=== PATIENT | male | born 1970 | race Caucasian/White ===

== ENCOUNTER 2018-01-15 10:10 | Outpatient (CLI) | payer BC, SELFPAY ==
[2018-01-15 13:14] LABS: Abs Immature Grans 0.04 k/cumm (0.0-0.09); HGB 17.4 g/dL (13.5-17.5); Mean Corp. HGB Concentration 34.8 g/dL (32.0-36.0); Mean Corpuscular Hemoglobin 33.1 pg (27.0-33.0); Mean Corpuscular Volume 95.1 fL (80-95); Mean Platelet Volume 9.8 fL (8.0-11.0); Platelet Count 223 x1000/uL (130-400); RBC 5.26 m/cumm (4.50-6.00); RBC Distribution Width 12.8 % (11.8-14.1); White Blood Cell Count 16.84 k/cumm (4.4-10.8)
[2018-01-15 13:28] LABS: Absolute Neutrophil Count 15.16 k/cumm (1.2-6.7)
[2018-01-15 13:29] LABS: Absolute Eosinophil Count 0.17 k/cumm (0.0-0.7); Absolute Lymphocyte Count 0.34 k/cumm (1.2-3.4); Absolute Monocyte Count 1.18 k/cumm (0.11-0.7); RBC Morphology Normal
[2018-01-15 13:34] LABS: ALT 68 U/L (12-78); AST 24 U/L (15-37); Albumin 4.3 g/dL (3.4-5.0); Alkaline Phosphatase 73 U/L (46-116); Anion Gap 13.2 mmol/L (3-11); BUN 9 mg/dL (7-18); Bilirubin, Total 2.2 mg/dL (0.2-1.0); CO2 26.8 mmol/L (21.0-32.0); CREATININE 1.12 mg/dL (0.70-1.30); Calcium 9.7 mg/dL (8.5-10.1); Chloride 98 mmol/L (98-107); Cholesterol 220 mg/dL (50-200); Glucose 110 mg/dL (70-100); HDL Cholesterol 59 mg/dL (40-60); LDL CHOLESTEROL 145 mg/dL (<100); Potassium 4.5 mmol/L (3.5-5.1); Sodium 138 mmol/L (136-145); Total Protein 7.6 g/dL (6.4-8.2); Triglyceride 153 mg/dL (30-150)
[2018-01-15 13:57] LABS: Amylase 50 U/L (25-115); Lipase 119 U/L (73-393)
[2018-01-15 15:02] LABS: Bilirubin, Direct 0.42 mg/dL (0.00-0.20)
== END 2018-01-15 10:30 ==
PROVIDERS: PCP Emergency Medicine; Visit Provider Family Medicine
DX: E80.6 Other disorders of bilirubin metabolism (principal); R10.9 Unspecified abdominal pain
CPT/HCPCS: 36415; 80053; 80061; 83690; 83721; 82150; 82248; 85025

== ENCOUNTER 2018-01-16 14:53 | Outpatient (CLI) | payer BC, SELFPAY ==
--- NOTE | 2018-01-16 12:05 | DI.CTLCSR_ITS ---
SYMPTOMS/DIAGNOSIS: ABD PAIN ABDOMINAL AND PELVIC CT: CT examination of the abdomen and pelvis was performed with a bolus infusion of 100 cc's of Omnipaque 350 and ingestion of dilute barium. Images obtained through the lung bases are unremarkable. The liver, spleen and pancreas appear normal. The gallbladder is mildly distended. No evidence of biliary dilatation. The adrenals and kidneys are unremarkable. No evidence of urinary tract obstruction or calcification. No abdominal or pelvic adenopathy seen. The abdominal aorta is of normal diameter and no major vascular abnormality is seen. No significant abdominal wall hernia seen. There is marked luminal dilatation of the appendix and there is marked periappendiceal fat edema and a small periappendiceal fluid collection. No significant free fluid identified in the pelvis. No gross free intraperitoneal air seen to indicate rupture. No additional bowel pathology seen. CONCLUSION: Findings consistent with acute appendicitis. Results were communicated to Dr. Wilkerson at 2:30 p.m.
[2018-01-16] MEDS: Omnipaque 350 MG/ML 100 ML BTL IJ (14:19)
== END 2018-01-16 15:13 ==
PROVIDERS: PCP Emergency Medicine; Visit Provider Family Medicine
DX: R10.31 Right lower quadrant pain (principal); K35.80 Unspecified acute appendicitis
CPT/HCPCS: 74177; J3490

== ENCOUNTER 2018-01-16 14:59 | Emergency (ER) | payer BC, SELFPAY | END 2018-01-16 16:00 | LOC: ER 15:18 | PROVIDERS: PCP Emergency Medicine | DX: R69 Illness, unspecified (principal) ==

== ENCOUNTER 2018-01-16 15:30 | Observation (INO) | payer BC, SELFPAY ==
[2018-01-16] VITALS (8 sets, daily range): BP systolic 123–156; BP diastolic 72–111; PULSE 100–129; RESP 14–94; TEMP 36.7–38.6; O2SAT 94–98
--- NOTE | 2018-01-16 15:48 | W.PM.HP.N ---
Date of service: 01/16/18 Time of Service: 15:48 Assessment and Plan (1) Appendicitis, acute: Current visit: Yes Status: Acute 47 y/o male with findings on CT , history, and exam consistent with acute appendicitis. Recommended laparoscopic appendectomy urgently. Operative procedure with risks, benefits, and alternatives reviewed with patient and . These include but are not limited to risks with anesthesia, bleeding, infection, scarring, conversion to open, drain placement, mejias placement, possible injury to adjacent structures and organs, and possible additional procedures. Expected post-op course/restrictions reviewed. All questions answered. Invanz ordered for perioperative antibiotic coverage. Will plan to proceed to OR this evening. History of Present Illness Chief Complaint: Abdominal pain Narrative: 47 y/o male, patient of Dr. Wilkerson, who presented today for an outpatient CT abd/pelvis for abdominal pain. CT demonstrated a dilated appendix with periappendiceal fluid and inflammation consistent with appendicitis. Case discussed with Dr. Wilkerson. Patient was seen in the office yesterday by Dr. Wilkerson and had labs drawn on 01/15/18. CBC significant for a WBC count of ~17k. Total bili - 2.2. Patient notes that he has had abdominal pain x 2 days. Pain was initially epigastric/periumbilical but has now settled in the right lower quadrant. (+) subjective intermittent fevers for which he has been taking Tylenol. He did not check his temperatiure. (+) nausea and vomiting. Blood was noted in his last emesis after he had vomited several times. (+) diarrhea. (+) anorexia. He has not had anything to eat or drink today except for oral contrast. He denies any urinary symptoms. He denies any sick contacts. He denies any chronic medical conditions or meds. He was prescribed oxycodone yesterday by Dr. Wilkerson for the abdominal pain. Review of Systems Review of Systems All systems reviewed & are unremarkable except as noted in HPI and below Constitutional Reports fever(s) Cardiovascular Denies chest pain, Denies rapid heart rate and Denies dyspnea on exertion Respiratory Denies cough and Denies dyspnea on exertion Gastrointestinal Reports abdominal pain, Reports diarrhea, Reports nausea and Reports vomiting PFSH Social History Smoking/Tobacco Use Status: Former Tobacco Use Surgical History H/O arthroscopy of left knee (Chronic) H/O arthroscopy of right knee (Chronic) Meds Home Medications Medication Instructions Recorded Confirmed Type oxycodone 5 mg tablet 5 mg PO Q4H PRN #18 tab MDD 6 tabs 01/15/18 01/16/18 Rx Allergies Allergy/AdvReac Type Severity Reaction Status Date / Time No Known Allergies Allergy Unverified 01/15/18 09:34 Exam Const General: cooperative, healthy appearing and no acute distress Orientation: alert and oriented x3 HENMT Head: normocephalic and atraumatic Eyes Sclera: sclerae normal Neck Neck: no lymphadenopathy, trachea midline and no JVD Resp Effort & Inspection: normal respiratory effort and able to speak in complete sentences Cardio Jugular venous pressure: no JVD Rate: regular rate GI Inspection: non-distended Palpation: soft, not firm, no guarding, no masses, not rigid and tender in the RLQ (moderately tender localized to RLQ) Skin General skin exam: no rashes or lesions noted and no jaundice Neuro General: alert and oriented x3 Speech: speech normal Results Imaging Abdomen CT scan report/results: report reviewed and image reviewed CT scan - pelvis: report reviewed and image reviewed Imaging Studies: Patient Name: LETY YORK AUnit #: [id number]: DI Ordering Provider: Franklin Wilkerson : [facility] Primary Care Provider: Bob Shiate of Exam: 01/16/18ex: M : 1970Age: 47 Exam(s) a CT:CT abdomen & pelvis w SYMPTOMS/DIAGNOSIS: ABD PAIN ABDOMINAL AND PELVIC CT: CT examination of the abdomen and pelvis was performed with a bolus infusion of 100 cc's of Omnipaque 350 and ingestion of dilute barium. Images obtained through the lung bases are unremarkable. The liver, spleen and pancreas appear normal. The gallbladder is mildly distended. No evidence of biliary dilatation. The adrenals and kidneys are unremarkable. No evidence of urinary tract obstruction or calcification. No abdominal or pelvic adenopathy seen. The abdominal aorta is of normal diameter and no major vascular abnormality is seen. No significant abdominal wall hernia seen. There is marked luminal dilatation of the appendix and there is marked periappendiceal fat edema and a small periappendiceal fluid collection. No significant free fluid identified in the pelvis. No gross free intraperitoneal air seen to indicate rupture. No additional bowel pathology seen. CONCLUSION: Findings consistent with acute appendicitis. Results were communicated to Dr. Wilkerson at 2:30 p.m. Ordering provider: Franklin Wilkerson CC: Dictated By: Karlo Portillo M.D. 01/16/18 1437 Transcribed By: Jyothi Mahan 01/16/18 [id number]
[2018-01-16] MEDS: Lactated Ringers 1,000 ML 125 ML IV (16:10)
--- NOTE | 2018-01-16 17:40 | APP_PTH ---
PATIENT: LETY YORK LOC: U#:[id number] AGE/SX: 47/M ROOM: 217 RE01/16/[address]: Charanjit Casillas : 1970 BED: A DIS: 01/17/2018 SPEC #: [id number] RECD: 01/17/18 12:50 STATUS: NAT REQ #: [id number] NICOLA: 01/16/18 17:[address]: Charanjit Casillas DEPT: Surgical Specimen RECD BY: Rachel Juan ENTERED: 01/17/18 12:52 SP TYPE: Appendix OTHR DR: Bob Shi DO Tissues: 1 - APPENDIX NOT INCIDENTAL 2 - PERITONEUM/JUANITA BIOPSY Procedures: GROSS AND MICRO LEVEL 4 GROSS AND MICRO LEVEL 3 Comments: [id number]
[2018-01-16] MEDS: Bupivacaine 0.25% Pres-Free 30 ML VIAL (17:46)
[2018-01-16] MEDS: HYDROmorphone 2 MG/ML VIAL IVP (18:15)
--- NOTE | 2018-01-16 18:36 | ROE_ITS ---
Date of service: 01/16/18 Time of Service: 18:27 Operative Note DATE OF PROCEDURE: 01/16/18 PRE-OP DIAGNOSIS: Acute appendicitis POST-OP DIAGNOSIS: same PROCEDURE: Laparoscopic appendectomy SURGEON: Charanjit Casillas CURRICULUM AND INSTRUCTION SPECIALIST: Suzi Skelton ANESTHESIA: GETA ESTIMATED BLOOD LOSS: 5 PATHOLOGY: other (appendix and peritoneal nodule) COMPLICATIONS: None Patient was transported to: PACU Patient's condition: stable Indications: 47 y/o male with findings of acute appendicitis on CT who presents at this time for a laparoscopic appendectomy. Operative procedure including risks, benefits, and alternatives had been discussed with the patient and his and informed consent obtained prior to surgery. Findings: Acute suppurative appendicitis. No gross rupture or abscess noted. Procedure Description: Patient was brought to the operating room and placed on the table in the supine position. SCDs in place on both lower extremities. Patient received Invanz for perioperative antibiotic coverage. Patient was intubated and placed under general anesthesia. Waters catheter placed. Anterior abdominal wall was shaved with a clipper then prepped and draped in the usual sterile fashion with chloraprep. Time out procedure performed per protocol. Initial incision was made just below the umbilicus. Incision was carried down to the fascia, which was grasped, elevated, and sharply incised. Peritoneal cavity was then entered in the midline. Peritoneal surface was swept with a finger. No adhesions noted. Stay sutures of 0-vicryl were placed on either side of the fascial opening. Farhad port inserted, CO2 connected, and abdomen insufflated to 15 mm Hg. Patient placed in Trendelenberg with the right side elevated. Remaining ports placed under direct vision after injection with 0.25% Marcaine including a 5 mm port in the suprapubic region and a second 5 mm port in the left lower quadrant. There was good visualization in the right lower quadrant. A rounded, loose nodule of fatty tissue was identified in the right pelvis. Terminal ileum and cecum were identified. The terminal ileum was draped over the appendix which was gently dissected free with blunt dissection. Inflammatory exudate was noted on the surface of the appendix. No obvious rupture or abscess was seen. The base of the appendix was isolated and divided with the endoGIA stapler and a medium- thick (purple) cartridge. Mesoappendix was divided with the vascular cartridge reload. The appendix and previously noted peritoneal nodule of fatty tissue were removed from the abdomen via the infraumbilical port site with the endocatch bag and sent to pathology. Right lower quadrant was copiously irrigated with saline and suctioned until the effluent was clear. Good hemostasis noted. Staple lines intact. Adjacent bowel intact with no signs of injury. Abdomen was decompressed as the ports were removed under direst vision. Fascia at the infraumbilical site was reapproximated by tying together the stay sutures in a pursestring fashion. Additional 0.25% Marcaine was injected at this site for postop analgesia. Skin incisions closed with subcuticular 4-0 monocryl and skin adhesive. Waters catheter removed at the end of the procedure. Patient was extubated, awakened from anesthesia, and transferres to recovery in satisfactory condition.
[2018-01-16] MEDS: Normal Saline Flush 10 ML SYR IVP (18:43)
[2018-01-16] MEDS: Ketorolac 30 MG/ML VIAL IVP (18:43)
[2018-01-16] MEDS: oxyCODONE 5 MG TAB PO (20:17)
[2018-01-16] MEDS: Calcium Carbonate *TUMS* 500 MG CHEW PO (22:46)
--- NOTE | 2018-01-16 23:06 | NUR.NOTE ---
Nursing Note: IV fluids disconnected and paused at the time this patient went to the OR. Due to documentation from the OR unable to document this fact. Fluids reattached and started again when the patient came back to the floor. Unable to document this either. Fluids did not finish infusing at 2100 and are still running at this time
[2018-01-17] MEDS: Ketorolac 30 MG/ML VIAL IVP (01:49)
[2018-01-17] MEDS: Normal Saline Flush 10 ML SYR IVP (01:50)
[2018-01-17] MEDS: Lactated Ringers 1,000 ML 125 ML IV ×2 (01:53→10:03)
[2018-01-17 04:00] VITALS: BP 112/68; PULSE 89; RESP 16; TEMP 36.2; O2SAT 98
[2018-01-17] MEDS: oxyCODONE 5 MG TAB PO ×2 (04:07→07:57)
[2018-01-17 07:30] VITALS: BP 118/80; PULSE 91; RESP 18; TEMP 37.1; O2SAT 97
--- NOTE | 2018-01-17 10:51 | W.PM.DS.N ---
Date of service: 01/17/18 Time of Service: 10:52 DS: Diagnosis Discharge Diagnosis (1) Appendicitis, acute: Status: Acute Discharge Plan Disposition Patient Disposition: HOME Condition: Good Discharge Details Reason For Visit: ACUTE APPENDICITIS Admit Date/Time: 01/16/18 15:30 Admit Provider: Charanjit Casillas Attending Provider: Charanjit Casillas Primary Care Provider: Bob Shi Hospital Course Hospital Course: 47 y/o male who presented on 01/16/18 with findings of acute appendicitis on CT. Patient underwent an uneventful laparoscopic appendectomy on 01/16/18. By 01/17/18, he was tolerating a regular diet, had a bowel movement, and was voiding without problems. Fever resoved this morning. Patient ready for discharge in good condition. Patient may continue oxycodone 5 mg po q 4 hours prn pain which he already has at home. No new Rx given. Home Meds and New Rx's Prescriptions: Continue oxycodone 5 mg tablet 5 mg PO Q4H MDD 6 tabs PRN (Reason: pain) Qty: 18 RF: 0 Discharge Instructions Additional Instructions: No lifting > 20# x 2 weeks. May shower/climb stairs. Let the skin adhesive come off on its own. May apply heating pad or ice pack to abdominal wall as needed for discomfort. Referrals: Fabiana Mac MD [ [facility] STAFF PHYSICIAN] - (Postop follow-up in 2 weeks.) Activity:: Activity as Tolerated Equipment/Supplies:: No Equipment Needed Diet:: As Tolerated Discharge Orders Discharge Orders: Discharge Order (Routine); Ordered 01/17/18 Ordered By: Charanjit Casillas Exam Const General: cooperative, comfortable and no acute distress Orientation: alert and oriented x3 [facility] Head: normocephalic and atraumatic Eyes Sclera: sclerae normal Resp Effort & Inspection: normal respiratory effort and able to speak in complete sentences GI Inspection: non-distended and incision (laparoscopic port sites clean and dry, skin intact) Palpation: soft and nontender Skin General skin exam: erythema (mild skin irritation from adhesive on surgical drapes noted on abdomen in rectangular outline) Neuro General: alert and oriented x3 Speech: speech normal DS: Data Vitals/I&O Vitals and I&O: Vital Signs Temperature 37.1 C 01/17/18 07:30 Temperature Source Tympanic 01/17/18 07:30 Pulse 91 H 01/17/18 07:30 Pulse Rhythm Regular 01/17/18 07:43 Respiratory Rate 18 01/17/18 07:30 Respiratory Effort Non-Labored 01/17/18 07:43 Respiratory Depth Normal 01/17/18 07:43 Respiratory Pattern Normal 01/17/18 07:43 Blood Pressure 118/80 01/17/18 07:30 Pulse Oximetry 97 01/17/18 07:30 Respiratory End-tidal CO2 36 01/16/18 18:10 Oxygen Delivery Method Room Air 01/17/18 07:30 Oxygen Flow Rate 0 01/17/18 07:30 Pain Level 5 01/17/18 08:57 Intake & Output 01/16/18 01/16/18 01/17/18 11:59 23:59 11:59 Intake Total 2180.00 / 2180.00 2069 / 2069 Output Total 250 / 250 Balance 1930.00 / 1930.00 2069 Weight 99 kg Intake: IV 1140.00 / 1140.00 1000 / 1000 Oral 1040 / 1040 1070 / 1070 Output: Urine 250 / 250 Other: Urine Color Yellow Yellow Urine Appearance Clear Clear Urine Odor None Comment pt states that he voided in the toilet Per pt. report, pt. had a void x1 in the toilet. Stool Size Moderate Stool Characteristics Soft Liquid Brown Emesis Description None Voiding Methods Toilet Toilet PFSH Social History Smoking/Tobacco Use Status: Former Tobacco Use Surgical History H/O arthroscopy of left knee (Chronic) H/O arthroscopy of right knee (Chronic)
--- NOTE | 2018-01-17 10:55 | DSE_ITS ---
Date of service: 01/17/18 Time of Service: 10:52 DS: Diagnosis Discharge Diagnosis (1) Appendicitis, acute: Status: Acute Discharge Plan Disposition Patient Disposition: HOME Condition: Good Discharge Details Reason For Visit: ACUTE APPENDICITIS Admit Date/Time: 01/16/18 15:30 Admit Provider: Charanjit Casillas Attending Provider: Charanjit Casillas Primary Care Provider: Bob Shi Hospital Course Hospital Course: 47 y/o male who presented on 01/16/18 with findings of acute appendicitis on CT. Patient underwent an uneventful laparoscopic appendectomy on 01/16/18. By 01/17/18, he was tolerating a regular diet, had a bowel movement, and was voiding without problems. Fever resoved this morning. Patient ready for discharge in good condition. Patient may continue oxycodone 5 mg po q 4 hours prn pain which he already has at home. No new Rx given. Home Meds and New Rx's Prescriptions: Continue oxycodone 5 mg tablet 5 mg PO Q4H MDD 6 tabs PRN (Reason: pain) Qty: 18 RF: 0 Discharge Instructions Additional Instructions: No lifting > 20# x 2 weeks. May shower/climb stairs. Let the skin adhesive come off on its own. May apply heating pad or ice pack to abdominal wall as needed for discomfort. Referrals: Fabiana Mac MD [ [facility] STAFF PHYSICIAN] - (Postop follow-up in 2 weeks.) Activity:: Activity as Tolerated Equipment/Supplies:: No Equipment Needed Diet:: As Tolerated Discharge Orders Discharge Orders: Discharge Order (Routine); Ordered 01/17/18 Ordered By: Charanjit Casillas Exam Const General: cooperative, comfortable and no acute distress Orientation: alert and oriented x3 [facility] Head: normocephalic and atraumatic Eyes Sclera: sclerae normal Resp Effort & Inspection: normal respiratory effort and able to speak in complete sentences GI Inspection: non-distended and incision (laparoscopic port sites clean and dry, skin intact) Palpation: soft and nontender Skin General skin exam: erythema (mild skin irritation from adhesive on surgical drapes noted on abdomen in rectangular outline) Neuro General: alert and oriented x3 Speech: speech normal DS: Data Vitals/I&O Vitals and I&O: Vital Signs Temperature 37.1 C 01/17/18 07:30 Temperature Source Tympanic 01/17/18 07:30 Pulse 91 H 01/17/18 07:30 Pulse Rhythm Regular 01/17/18 07:43 Respiratory Rate 18 01/17/18 07:30 Respiratory Effort Non-Labored 01/17/18 07:43 Respiratory Depth Normal 01/17/18 07:43 Respiratory Pattern Normal 01/17/18 07:43 Blood Pressure 118/80 01/17/18 07:30 Pulse Oximetry 97 01/17/18 07:30 Respiratory End-tidal CO2 36 01/16/18 18:10 Oxygen Delivery Method Room Air 01/17/18 07:30 Oxygen Flow Rate 0 01/17/18 07:30 Pain Level 5 01/17/18 08:57 Intake & Output 01/16/18 01/16/18 01/17/18 11:59 23:59 11:59 Intake Total 2180.00 / 2180.00 2069 / 2069 Output Total 250 / 250 Balance 1930.00 / 1930.00 2069 Weight 99 kg Intake: IV 1140.00 / 1140.00 1000 / 1000 Oral 1040 / 1040 1070 / 1070 Output: Urine 250 / 250 Other: Urine Color Yellow Yellow Urine Appearance Clear Clear Urine Odor None Comment pt states that he voided in the toilet Per pt. report, pt. had a void x1 in the toilet. Stool Size Moderate Stool Characteristics Soft Liquid Brown Emesis Description None Voiding Methods Toilet Toilet PFSH Social History Smoking/Tobacco Use Status: Former Tobacco Use Surgical History H/O arthroscopy of left knee (Chronic) H/O arthroscopy of right knee (Chronic)
== END 2018-01-17 11:37 | disposition home or self-care (01) ==
LOC: MS 15:32
PROVIDERS: Admitting Provider Surgery; PCP Emergency Medicine; Visit Provider Surgery
PROC: 0DTJ4ZZ Resection of Appendix, Percutaneous Endoscopic Approach (ICD-10-PCS; CPT 44970; principal; 2018-01-16 16:30)
DX: K35.890 Other acute appendicitis without perforation or gangrene (principal)
CPT/HCPCS: 44970; 88305; 99222; NC; 88304; 93005; 93010; G0378; J1335; J1885; J2250; J2405; J3010

== ENCOUNTER 2019-09-28 08:29 | Outpatient (CLI) | payer BC, SELFPAY ==
[2019-09-30 14:14] LABS: SARS-CoV-2 RNA Undetected (Undetected); SARS-CoV-2 Specimen Source Nasopharynx
== END 2019-09-28 08:49 ==
PROVIDERS: PCP Emergency Medicine; Visit Provider Emergency Medicine
DX: Z11.59 Encounter for screening for other viral diseases (principal)
CPT/HCPCS: U0003

== ENCOUNTER 2019-10-08 00:56 | Outpatient (CLI) | payer BC, SELFPAY ==
--- NOTE | 2019-10-08 08:00 | ETT_ITS ---
APPROVED REPORT Exam: Exercise Treadmill Patient Location: Out-Patient Room/Bed: Stress Nurse: Margarita Carvajal RN BMI: 27.12 Baseline Rhythm: Sinus Rhythm Indications: Chest Pain, Dyspnea, SOB Medical History Medical History: Hyperlipidemia, SOB Cardiac Medications: Aspirin, statin(unknown) Allergies: No known drug allergies Cardiac Risk Factors: Hyperlipidemia, FHX of CAD, SOB Pretest Chest Pain Characteristics: Dyspnea Exercise History: Physically active Physical Disabilities: Knees Lung Sounds: Clear to auscultation Heart Sounds: Regular Stress Test Details Test: Exercise stress testing was performed using a Parish protocol. Rest Stress HR Resting HR Supine: 86 bpm Max Heart Rate (APMHR): 171 bpm Resting HR Standin bpm Target HR (85% APMHR): 145 bpm Max HR Achieved: 171 bpm % of APMHR: 100 Recovery HR: 104 bpm HR response to stress: Accelerated HR response to stress BP Resting BP Supine: 156/88 mmHg Resting BP Standin/66 mmHg Max BP: 180/72 mmHg Recovery BP: 150/84 mmHg BP response to stress: Abnormal hypertensive response to stress. ECG Resting ECG: Sinus Rhythm Stress ECG: Sinus Rhythm ST Change: Normal Maximum ST Deviation: 2.8 mm Arrhythmia: VPC's Recovery ECG: Sinus tachycardia Recovery ST Change: Normal Recovery Arrhythmia: VPC Clinical Reason for Termination: Target HR Achieved, Leg pain/Claudication Stress Symptoms: Leg Fatigue, General Fatigue Exercise duration: 09 min28 sec Highest Stage Reached: Stage 4: 4.2 mph at 16% grade. Exercise capacity: 10.92 METs Functional Capacity: Average Capacity Stress ECG Conclusion 1. Patient exercised for 9 minutes (11 METS). Rate-pressure product was 30,000. 2. Patient no symptoms suggestive of ischemia. 3. There was no evidence of ischemia on the ECG portion of the exam. 4. The Bhatt Score ( 9) estimates an annual cardiovascular mortality of 0% and a five year survival of 95%. Using the Bhatt Score there is a low probability of any angiographic coronary disease. Critical Notification Critical Value: No
--- NOTE | 2019-10-08 08:40 | DI.RAD_ITS ---
EXAM: XR CHEST 2V PA LATERAL CLINICAL HISTORY: dyspnea on exertion,r06.00 TECHNIQUE: 2D digital imaging was performed. COMPARISON: No exams were available for comparison FINDINGS: The heart is not enlarged. The lungs are clear and well expanded. No pleural effusion seen. Mediastin al contours appear intact. IMPRESSION: Normal chest
== END 2019-10-08 01:16 ==
PROVIDERS: PCP Emergency Medicine; Visit Provider Emergency Medicine
DX: R06.00 Dyspnea, unspecified (principal); R07.9 Chest pain, unspecified; R06.02 Shortness of breath; E78.5 Hyperlipidemia, unspecified; Z82.49 Family history of ischemic heart disease and other diseases of the circulatory system
CPT/HCPCS: 71046; 93017

== ENCOUNTER 2019-10-09 01:41 | Outpatient (CLI) | payer BC, SELFPAY ==
[2019-10-09 12:44] LABS: HCT 48.7 % (40.0-50.0); HGB 16.9 g/dL (13.5-17.5); MCH 33.5 pg (27.0-33.0); MCHC 34.7 % (32.0-36.0); MCV 96.4 fL (80-95); MPV 9.6 fL (8.0-11.0); Platelet Count 214 10^3/uL (130-400); RBC 5.05 10^6/uL (4.36-5.78); RDW 12.4 % (11.8-14.1); RDW-SD 44.1 fL; WBC 5.19 10^3/uL (4.4-10.8)
[2019-10-09 13:08] LABS: ALT 78 U/L (16-63); AST 49 U/L (15-37); Albumin 4.5 g/dL (3.4-5.0); Alkaline Phosphatase 66 U/L (46-116); BUN 9 mg/dL (7-18); Bilirubin, Total 0.7 mg/dL (0.2-1.0); C-Reactive Protein 0.16 mg/dL (0.0-0.3); Calcium 9.4 mg/dL (8.5-10.1); Chloride 106 mmol/L (98-107); Glucose 91 mg/dL (74-106); NT-proBNP 25 pg/mL (<300); Potassium 4.4 mmol/L (3.5-5.1); Sodium 143 mmol/L (136-145); Total Protein 7.3 g/dL (6.4-8.2)
[2019-10-09 13:12] LABS: D-Dimer 190 ng/mlFEU (<500)
[2019-10-09 13:42] LABS: ESR 3 mm/hr (0-15)
== END 2019-10-09 02:01 ==
PROVIDERS: PCP Emergency Medicine; Visit Provider Emergency Medicine
DX: R06.00 Dyspnea, unspecified (principal); I50.9 Heart failure, unspecified
CPT/HCPCS: 36415; 80053; 85027; 85652; 83880; 85379; 86140

== ENCOUNTER 2019-10-29 02:30 | Outpatient (CLI) | payer BC, SELFPAY ==
--- NOTE | 2019-10-29 07:30 | DI.CT_ITS ---
EXAM: CT CHEST W CLINICAL HISTORY: SOB, CHEST PAIN WORSE WITH BREATHING,R07.1,R06.02 TECHNIQUE: COMPARISON: No exams were available for comparison FINDINGS: CT examination of the chest was performed with a bolus infusion of 70 cc of Omnipaque 350. Images obtained through the upper abdomen show unremarkable appearance of visualized portions of the liver, spleen, pancreas, adrenals, and kidneys. Gallbladder and bile ducts are CT normal. There is no evidence of a mediastinal mass or adenopathy. Pulmonary arteries are not well opacified, no gross central embolus. There is no thoracic aortic dissection or aneurysm. Major branch vessels of thoracic aorta are unremarkable. Cardiac size is within normal limits. No pleural effusion seen. The diaphragm is mildly elevated on the right. The lungs are clear with minimal mosaic attenuation in the right lung base which may be related to th e diaphragmatic elevation. Note is made of asymmetry of the clavicular heads, the right clavicular head is deformed and this may represent an old fracture. There is question of inferior displacement of the right clavicular head relative to the left clavicular head at the sternoclavicular joints, there does not appear to be karyn s widening of the right sternoclavicular joint. No gross soft tissue mass or edema associated with t he sternoclavicular joints. Clinical correlation is requested and if there is symptomatology referab le to the right sternoclavicular joint additional evaluation with MRI could be considered. IMPRESSION: No evidence of acute intrapulmonary process. Asymmetry of sternoclavicular joints, probable old fracture right clavicular head, additional evaluat ion with MRI could be considered if there is high clinical suspicion of sternoclavicular arthritis or inflammation. RADIATION DOSE DELIVERED: 568.13mGy.cm Total DLP
[2019-10-29] MEDS: Omnipaque 350 MG/ML 100 ML BTL IJ (14:25)
[2019-10-29] MEDS: Normal Saline - Diluent 50 ML VIAL IV (14:25)
== END 2019-10-29 02:50 ==
PROVIDERS: PCP Emergency Medicine; Visit Provider Emergency Medicine
DX: R06.02 Shortness of breath (principal); R07.1 Chest pain on breathing; M85.80 Other specified disorders of bone density and structure, unspecified site
CPT/HCPCS: 71260; J3490

== ENCOUNTER 2019-12-04 04:28 | Outpatient (CLI) | payer BC, SELFPAY ==
[2019-12-05 21:10] LABS: COVID-19 RT-PCR Result NEGATIVE (Negative)
== END 2019-12-04 04:48 ==
PROVIDERS: PCP Emergency Medicine; Visit Provider Family Medicine
DX: Z11.59 Encounter for screening for other viral diseases (principal); Z01.811 Encounter for preprocedural respiratory examination
CPT/HCPCS: U0003